=== PATIENT | female | born 1960 | race Hispanic/Latino ===

== ENCOUNTER 2016-05-02 23:50 | Emergency (ER) | payer MEDICAID ==
[2016-05-03] MEDS ORDERED: NACL 0.9% 1000 ML 1,000 ML IV ONE (00:38)
[2016-05-03] MEDS ORDERED: VALIUM IV ONE (00:39)
[2016-05-03 00:45] LABS: Basophils % (Auto) 0.6 % (0.0-1.8); Hematocrit 41.3 % (30.3-42.9); Hemoglobin 14.2 gm/dl (10.1-14.3); Mean Corpuscular HGB Conc 34 % (30-34); Mean Corpuscular Hemoglobin 30 pg (28-32); Mean Corpuscular Volume 88 fl (79-97); Platelet Count 144 K/mm3 (140-440); Red Cell Distribution Width 14.9 % (13.2-15.2); White Blood Count 9.6 K/mm3 (4.5-11.0)
[2016-05-03 00:54] LABS: Alanine Aminotransferase 42 units/L (7-56); Albumin 4.3 g/dL (3.9-5); Albumin/Globulin Ratio 1.3 %; Alkaline Phosphatase 77 units/L (35-129); Bilirubin,Total 0.4 mg/dL (0.1-1.2); Blood Urea Nitrogen 13 mg/dL (7-17); Calcium 9.9 mg/dL (8.4-10.2); Carbon Dioxide 24 mmol/L (22-30); Chloride 99.1 mmol/L (98-107); Creatine Kinase 118 units/L (30-135); Glucose 120 mg/dL (65-100); Potassium 3.5 mmol/L (3.6-5.0); Sodium 140 mmol/L (137-145); Total Protein 7.6 g/dL (6.3-8.2)
[2016-05-03 00:56] LABS: INR 1.04 (0.87-1.13); Partial Thromboplastin Time 24.2 Sec. (24.2-36.6)
[2016-05-03 00:58] LABS: Anion Gap 20 mmol/L
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
[2016-05-03 02:07] LABS: Creatine Kinase MB 6.1 ng/mL (0.0-4.0)
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
[2016-05-03 06:00] VITALS: BP 126/78
--- NOTE | 2016-05-03 08:05 | XRay Report ---
RIGHT KNEE, 2 views: History: Right knee pain. The bony architecture is intact without evidence of fracture or dislocation. No significant soft tissue abnormality is seen. Enthesophyte on the superior patella is noted. IMPRESSION: Unremarkable right knee.
--- NOTE | 2016-05-03 08:07 | XRay Report ---
AP PELVIS: History: Pain. AP view of the pelvis shows normal pelvic contour and soft tissues. The hips are symmetric and within normal limits as are the sacroiliac joints. Minimal osteoarthritic changes are noted at the SI joints and right hip. IMPRESSION: Unremarkable AP pelvis. Minor degenerative changes.
--- NOTE | 2016-05-03 09:28 | XRay Report ---
Right shoulder single view: Compared to 01/27/16. History: Shoulder pain. Findings: There is noted widening of the a.c. joint. Articular margins appear irregular. The glenohumeral joint appears normal. No soft tissue calcification. Impression: Widening of the a.c. joint compared to previous study with irregular articular margins. Further evaluation with MRI scan may be recommended if clinically indicated
--- NOTE | 2016-05-03 09:51 | XRay Report ---
AP CHEST X-RAY: FINDINGS: The heart and lungs are normal. There is no pleural fluid. There is partial resorption of the right distal clavicle. IMPRESSION: 1. No acute findings. 2. Resorption of distal right clavicle. Differential considerations include hyperparathyroidism, scleroderma, metastatic disease, and numerous other conditions.
== END 2016-05-03 06:15 | disposition home or self-care (01) ==
LOC: ED 23:50
DX: R51 Headache (principal); M25.511 Pain in right shoulder; I10 Essential (primary) hypertension; E11.9 Type 2 diabetes mellitus without complications; K21.9 Gastro-esophageal reflux disease without esophagitis; M19.90 Unspecified osteoarthritis, unspecified site; G43.909 Migraine, unspecified, not intractable, without status migrainosus; R56.9 Unspecified convulsions; J45.909 Unspecified asthma, uncomplicated; F17.200 Nicotine dependence, unspecified, uncomplicated; Z88.5 Allergy status to narcotic agent
CPT/HCPCS: 36415; 70450; 71010; 71275; 72170; 73020; 73560; 80053; 82550; 82553; 83880; 84484; 85025; 85379; 85610; 85730; 93005; 93010; 96361; 96374; 99285; J3360; J7030; Q9967

== ENCOUNTER 2016-05-03 13:07 | Emergency (ER) | payer MEDICAID ==
--- NOTE | 2016-05-03 14:27 | Emergency Department Report ---
Chief Complaint: Headache Stated Complaint: MIGRAIN Time Seen by Provider: 05/03/16 14:19 - HPI History of Present Illness: Patient here complaining of headache times one month. She reports blurred vision and dizziness. She reports nausea and vomiting. Patient was here earlier this morning and was seen and discharged she says she was having chest pain this morning and they gave her nitroglycerin and Valium she denies any chest pain at present. Denies any shortness of breath she is reporting that her head hurts at 10 out of 10. Patient says she has chronic migraine headache and she wants to be seen for her headache. Patient had multiple diagnostics tests done while she was here earlier to include multiple x-rays, CTA of the chest and CT of the head. She also had lab work done earlier this morning. Don 't see any need to repeat her lab work or CT scan. Patient says she has several seizures before she came to the ER this morning. She is on Keppra. - ROS Review of Systems: All systems are negative unless stated in HPI above. - Exam Vital Signs: Vital Signs 05/03/16 13:08 Temperature 98.2 F Pulse Rate 111 H Respiratory 16 Rate Blood Pressure 138/81 O2 Sat by Pulse 95 Oximetry Physical Exam: General: This is a 55-year-old female well-nourished well-developed in no acute distress. Head: Normocephalic atraumatic. No contusions or abrasions. mini-Neuro: GCS at 15. Negative pronator drift and negative Romberg. PT alert and oriented 3. Speech is clear and no facial drooping. Normal gait CV: Tachycardic at 111 MSE screening note: Focused history and physical exam performed. Due to findings the following was ordered: See [facility] ED Medical Decision Making - Medical Decision Making Medical decision making: Patient seen by provider in triage area. Appropriate protocol activated and patient to main ED to be seen by physician. ED Disposition for [facility] Condition: Stable
[2016-05-03 18:36] LABS: Urine Drugs of Abuse Note Disclamer
[2016-05-03 19:24] LABS: Bacteria,Urine 1+ /HPF (Negative); Bilirubin,Urine NEG (Negative); Blood,Urine NEG (Negative); Ketones,Urine NEG (Negative); Leukocyte Esterase,Urine SM (Negative); Mucus,Urine FEW /HPF; Nitrite,Urine NEG (Negative); Protein,Urine <15 mg/dL mg/dL (Negative)
--- NOTE | 2016-05-04 00:45 | Admit Criteria Form ---
Admission Criteria Documentation: HEADACHES Clinical Indications for Admission to Inpatient Care (Place 'X' for any and all applicable criteria): Admission is indicated for ANY ONE of the following(1)(2)(3)(4): [ X]I. Inpatient admission required rather than observational care (Also use Headaches: Observation Care as appropriate) because of ANY ONE of the following: [ ]a) Severe pain requiring acute inpatient management [ ]b) Altered mental status that is severe or persistent [ ]c) Vomiting or dehydration that is severe or persistent [ ]d) New-onset focal neurologic deficit that is severe or persistent [ ]e) Hypertension requiring inpatient treatment [ ]f) Severe (new) neurologic findings requiring inpatient care as indicated by ANY ONE of following(9)(10): [ ]1) Papilledema [ ]2) Cerebral edema [ ]3) Mass effect on CT scan [ ]4) Cerebral bleeding, ischemia, or vasospasm(16) [ ]5) Hydrocephalus(17) [ ]6) Uncontrolled seizures [ ]g) IV infusion of anticoagulation, platelet inhibitors vasoactive, or antiarrhythmic medication. [ ]h) Cerebral bleeding, hydrocephalus, or vasospasm monitoring (16) [ ]i) Increased intracranial pressure or cerebral edema monitoring (17) [X]j) Other condition, treatment or monitoring requiring inpatient admission [ ]II. Unruptured but threatening aneurysm or vascular malformation [ ]III. Venous sinus thrombosis [ ]IV. Increased intracranial pressure [ ]V. Cerebral spinal fluid leak with decreased intracranial pressure [ ]. Medication-overuse headache that has failed all outpatient management options [ ]VII. Vasculitis (eg, giant cell (temporal) arteritis, central nervous system vasculitis) requiring IV corticosteroids, IV antithrombotic therapy, or inpatient monitoring (eg, visual symptoms or findings, other ischemic manifestations)[A](10)(11) Extended stay beyond goal length of stay may be needed for (27): [ ]a) Intractable migraine [ ]b) Subarachnoid or intracranial hemorrhage [ ]c) Malignant hypertension [ ]d) Detoxification from drug withdrawal in medication-overuse headache (29) The original [facility] [employer] content created by [facility] [employer] has been revised. The portions of the content which have been revised are identified through the use of italic text or in bold, and [employer] has neither reviewed nor approved the modified material.All other unmodified content is copyright [facility]. Please see references footnoted in the original [facility] edition 2016
[2016-05-04] MEDS ORDERED: KEPPRA PO ONE (00:50)
[2016-05-04] MEDS ORDERED: TORADOL IM ONE (00:50)
--- NOTE | 2016-05-04 00:56 | Emergency Department Report ---
ED General Adult HPI - General Chief complaint: Headache Stated complaint: MIGRAIN Time Seen by Provider: 05/03/16 14:19 Source: patient, RN notes reviewed, old records reviewed Mode of arrival: Ambulatory Limitations: No Limitations - History of Present Illness Initial comments: This is a 55-year-old female. I saw the patient yesterday for headache, right- sided shoulder pain, atypical chest pain. Patient had an extensive workup yesterday, including essentially negative CAT scan of the head, CAT scan of the chest for pulmonary animals, and unremarkable laboratory work with exception of a urinalysis that suggested the presence of marijuana abuse. The patient was observed in the ER yesterday for a prolonged period of time, and then discharged. The patient presents today complaining of her chronic headache, chronic right-sided shoulder pain. Her symptoms today are the same as they are yesterday. She has no extremity weakness or numbness. She has no ataxia. She is not homicidal or suicidal. The patient states that today she is interested in speaking to case management about placement. Of note, when I arrived to the emergency room for my shift this evening, I noted the patient to be outside, smoking a cigarette, walking around without any difficulty. There is some documentation from her medical screening exam about multiple seizures. The patient has been observed in the ER last night under my direct care without any observed convulsion or seizure. Furthermore, the patient has been waiting room for quite some time prior to coming back, and no convulsive episodes were noted. At this time, the patient has been in the emergency department for approximately 8 hours, with no witnessed convulsive episodes. Her exam is similar to the wait was yesterday. She has persistent right-sided acromial clavicular shoulder tenderness. I see no objective indication to repeat her laboratory studies or radiology workup. She is instructed to discontinue marijuana consumption. She is instructed to not drive a car for the next 6 months. She is instructed to follow up with outpatient primary care, neurology. -: Gradual, week(s) Location: head, right, upper extremity Quality: aching Consistency: constant Improves with: rest Worsens with: movement Associated Symptoms: headaches - Related Data Home Medications Medication Instructions Recorded Confirmed Last Taken ALBUTEROL Inhaler [Proair] 2 puff IH QID PRN 11/21/15 01/03/16 01/04/16 Albuterol *Only Ed* [Proventil 2.5 mg IH Q4H PRN 11/21/15 01/03/16 01/04/16 0.5% NEBS] Fluticasone/Salmeterol [Advair 1 puff IH BID 11/21/15 01/03/16 01/04/16 Diskus 250-50 mcg] Ranitidine HCl [Zantac 150 MG TAB] 150 mg PO PRN PRN 11/21/15 01/03/16 01/04/16 metFORMIN [Glucophage] 500 mg PO BID 11/21/15 01/03/16 01/04/16 levETIRAcetam [Keppra TAB] 500 mg PO QDAY 01/05/16 01/05/16 01/05/16 06:45 Previous Rx's Medication Instructions Recorded Last Taken Type Ibuprofen [Motrin 800 MG tab] 800 mg PO Q8HR PRN #20 tablet 01/27/16 Unknown Rx Allergies Allergy/AdvReac Type Severity Reaction Status Date / Time acetaminophen [From Vicodin] Allergy Rash Verified 01/05/16 07:46 hydrocodone bitartrate Allergy Rash Verified 01/05/16 07:46 [From Vicodin] ED Review of Systems ROS: Stated complaint: MIGRAIN Other details as noted in HPI ED Past Medical Hx - Past Medical History Hx Hypertension: Yes Hx Diabetes: Yes (diagnosed within last 6-7 mos) Hx GERD: Yes Hx Arthritis: Yes Hx Headaches / Migraines: Yes (occas migraine) Hx Seizures: Yes (last 8 days ago - took meds this AM) Hx Asthma: Yes - Surgical History Hx Cholecystectomy: Yes Additional Surgical History: Hysterectomy - Social History Smoking Status: Never Smoker Substance Use Type: None - Medications Home Medications: Home Medications Medication Instructions Recorded Confirmed Last Taken Type ALBUTEROL Inhaler [Proair] 2 puff IH QID PRN 11/21/15 01/03/16 01/04/16 History Albuterol *Only Ed* [Proventil 2.5 mg IH Q4H PRN 11/21/15 01/03/16 01/04/16 History 0.5% NEBS] Fluticasone/Salmeterol [Advair 1 puff IH BID 11/21/15 01/03/16 01/04/16 History Diskus 250-50 mcg] Ranitidine HCl [Zantac 150 MG TAB] 150 mg PO PRN PRN 11/21/15 01/03/16 01/04/16 History metFORMIN [Glucophage] 500 mg PO BID 11/21/15 01/03/16 01/04/16 History levETIRAcetam [Keppra TAB] 500 mg PO QDAY 01/05/16 01/05/16 01/05/16 06:45 History Ibuprofen [Motrin 800 MG tab] 800 mg PO Q8HR PRN #20 tablet 01/27/16 Unknown Rx ED Physical Exam - General Limitations: No Limitations General appearance: alert, in no apparent distress - Head Head exam: Present: atraumatic, normocephalic - Eye Eye exam: Present: normal appearance, EOMI. Absent: nystagmus - ENT ENT exam: Present: normal exam, normal orophraynx, mucous membranes moist, normal external ear exam - Neck Neck exam: Present: normal inspection, full ROM. Absent: tenderness, meningismus - Respiratory Respiratory exam: Present: normal lung sounds bilaterally. Absent: respiratory distress, wheezes, rales, rhonchi, stridor - Cardiovascular Cardiovascular Exam: Present: regular rate, normal rhythm, normal heart sounds. Absent: bradycardia, tachycardia, irregular rhythm, systolic murmur, diastolic murmur, rubs, gallop - GI/Abdominal GI/Abdominal exam: Present: soft, normal bowel sounds. Absent: distended, tenderness, guarding, rebound, rigid, pulsatile mass - Extremities Exam Extremities exam: Present: normal inspection, full ROM, tenderness (the right acromioclavicular joint is tender.), normal capillary refill, other ( compartments are soft. The pelvis is stable.). Absent: pedal edema, joint swelling - Back Exam Back exam: Present: normal inspection, full ROM. Absent: tenderness, CVA tenderness (R), CVA tenderness (L), muscle spasm, paraspinal tenderness, vertebral tenderness - Neurological Exam Neurological exam: Present: alert, oriented X3, normal gait, other (Extraocular movements intact. Tongue midline. No facial droop. Facial sensation intact to light touch in the V1, V2, V3 distribution bilaterally. 5 and 5 strength in 4 extremities.. Sensation is intact to light touch in 4 extremities.). Absent : motor sensory deficit - Psychiatric Psychiatric exam: Present: agitated - Skin Skin exam: Present: warm, dry, intact, normal color. Absent: rash ED Course Vital Signs 05/03/16 13:08 Temperature 98.2 F Pulse Rate 111 H Respiratory 16 Rate Blood Pressure 138/81 O2 Sat by Pulse 95 Oximetry - Reevaluation(s) Reevaluation #1: 05/04/16 01:00 Differential diagnosis: Seizure, pseudoseizure, malingering, cannabis abuse, persistent right-sided acromioclavicular strain ED Medical Decision Making - Lab Data Vital Signs 05/03/16 13:08 Temperature 98.2 F Pulse Rate 111 H Respiratory 16 Rate Blood Pressure 138/81 O2 Sat by Pulse 95 Oximetry Critical care attestation.: If time is entered above; I have spent that time in minutes in the direct care of this critically ill patient, excluding procedure time. ED Disposition Clinical Impression: Headache, Right shoulder pain Disposition: DISCHARGED TO HOME OR SELFCARE Is pt being admited?: No Does the pt Need Aspirin: No Condition: Stable Instructions: Acromioclavicular Separation (ED) Additional Instructions: Rest and avoid heavy lifting. Avoid strenuous physical activity. Follow-up with primary care doctor and neurology specialist within the next week to [address] Sanders is a local neurologist. Dr. Go is a local primary care doctor. Do not drive a car or operate motor vehicles for the next 6 months. Cannot consume alcohol, and discontinue consumption of illegal drugs, including marijuana. The urine toxicology screen yesterday demonstrated the presence of marijuana. If you are consuming marijuana or illegal drugs, they are bad for your health. X-rays yesterday demonstrated separation of the right side of the acromioclavicular joint, and nonspecific bony abnormalities which might be concerning for cancer/tumor/malignancy. Therefore, it is very important to closely follow up with outpatient primary care doctor or orthopedist for further evaluation and management. Please return to the ER right away with chest pain or shortness of breath, nausea or vomiting, recurrent seizures, inability to tolerate liquid feeds. Referrals: PRIMARY CARE, [Primary Care Provider] - 3-5 Days MITRA GO MD [Staff Physician] - 3-5 Days PETAR RUTHERFORD MD [Staff Physician] - 3-5 Days CANDI SANDERS MD [Staff Physician] - 3-5 Days
[2016-05-04 01:12] VITALS: BP 124/57
== END 2016-05-04 01:19 | disposition home or self-care (01) ==
LOC: ED 13:07
DX: G43.909 Migraine, unspecified, not intractable, without status migrainosus (principal); M25.511 Pain in right shoulder; G89.29 Other chronic pain; I10 Essential (primary) hypertension; K21.9 Gastro-esophageal reflux disease without esophagitis; E11.9 Type 2 diabetes mellitus without complications; M19.90 Unspecified osteoarthritis, unspecified site; R56.9 Unspecified convulsions; J45.909 Unspecified asthma, uncomplicated; Z88.5 Allergy status to narcotic agent
CPT/HCPCS: 36415; 80177; 80307; 81001; 96372; 99283; G0480; J1885; 80320

== ENCOUNTER 2016-05-08 00:22 | Emergency (ER) | payer MEDICAID ==
--- NOTE | 2016-05-08 04:10 | Emergency Department Report ---
HPI - General Chief Complaint: Allergic Reaction Time Seen by Provider: 05/08/16 04:03 - HPI HPI: Patient here reports that she's having allergic reaction from taking Lortab and Fioricet. She reports 30 minutes after taking these medications for her migraines she broke out into a rash. Patient was experiencing shortness of breath but she is okay now. Patient has a history of asthma without any complaints. Denies any difficulty swallowing. Denies any drooling or sore throat. Denies any coughing or wheezing. She is also complaining of itching all over. The patient was waiting to be seen she was in a wheelchair and fell out of her reach wheelchair and has bruise to her nasal septum. She is also complaining of right shoulder pain at 10 out of 10. ED Past Medical Hx - Past Medical History Previous Medical History?: Yes Hx Hypertension: Yes Hx Diabetes: Yes (diagnosed within last 6-7 mos) Hx GERD: Yes Hx Arthritis: Yes Hx Headaches / Migraines: Yes (occas migraine) Hx Seizures: Yes (last 8 days ago - took meds this AM) Hx Asthma: Yes - Surgical History Past Surgical History?: Yes Hx Cholecystectomy: Yes Additional Surgical History: Hysterectomy - Family History Family history: asthma, hypertension - Social History Smoking Status: Current Every Day Smoker Substance Use Type: None - Medications Home Medications: Home Medications Medication Instructions Recorded Confirmed Last Taken Type ALBUTEROL Inhaler [Proair] 2 puff IH QID PRN 11/21/15 01/03/16 01/04/16 History Albuterol *Only Ed* [Proventil 2.5 mg IH Q4H PRN 11/21/15 01/03/16 01/04/16 History 0.5% NEBS] Fluticasone/Salmeterol [Advair 1 puff IH BID 11/21/15 01/03/16 01/04/16 History Diskus 250-50 mcg] Ranitidine HCl [Zantac 150 MG TAB] 150 mg PO PRN PRN 11/21/15 01/03/16 01/04/16 History metFORMIN [Glucophage] 500 mg PO BID 11/21/15 01/03/16 01/04/16 History levETIRAcetam [Keppra TAB] 500 mg PO QDAY 01/05/16 01/05/16 01/05/16 06:45 History Ibuprofen [Motrin 800 MG tab] 800 mg PO Q8HR PRN #20 tablet 01/27/16 Unknown Rx Famotidine [Pepcid] 40 mg PO QDAY #5 tablet 05/08/16 Unknown Rx diphenhydrAMINE [Benadryl CAP] 50 mg PO Q8HR PRN #12 capsule 05/08/16 Unknown Rx predniSONE [Deltasone] 20 mg PO QDAY #5 tab 05/08/16 Unknown Rx traMADol [Ultram] 50 mg PO Q6HR PRN #20 tablet 05/08/16 Unknown Rx ED Review of Systems ROS: Stated complaint: ITCHING OVER BODY Other details as noted in HPI Comment: All other systems reviewed and negative Constitutional: denies: chills, fever Eyes: denies: eye pain, eye discharge, vision change ENT: denies: ear pain, throat pain, congestion Respiratory: denies: cough, orthopnea, shortness of breath, SOB with exertion, SOB at rest, stridor, wheezing Cardiovascular: denies: chest pain, palpitations, edema, syncope Gastrointestinal: denies: abdominal pain, nausea, vomiting Musculoskeletal: arthralgia. denies: back pain Skin: rash, pruritus Neurological: denies: headache, weakness, numbness, paresthesias, confusion, abnormal gait, vertigo Physical Exam - Physical Exam Vital Signs: Vital Signs 05/08/16 00:42 Temperature 98.7 F Pulse Rate 69 Respiratory 20 Rate Blood Pressure 137/82 O2 Sat by Pulse 96 Oximetry General: This is a 55-year-old female well-nourished well-developed in no acute distress. Physical Exam: Head: Normocephalic atraumatic. No abrasion or contusion. Mouth: Moist, no pharyngeal exudate or erythema. Uvula is midline and oral airway is patent. No gingival enlargement or dental tenderness. No facial swelling. No peritonsillar abscesses. MSK: Full range of motion to all extremity,NO AC or glenohumeral joint tenderness. +5/5 strength in all extremities. Neck: Supple, no C-spine tenderness, no tracheal deviation. Nontender to palpate. no adenopathy Ears: Bilateral TMs pearly han.bilateral EAC without any redness swelling or drainage Eyes: Bilateral pupils equal and reactive to light, bilateral EOM intact. Bilateral sclera and conjunctiva without injection. Normal accommodation Nose: Mucosa moist, normal mucosa .maxillary and frontal sinus non-tender to palpate. Nasal septum nontender to palpate without any deformity Lungs:[place] auscultate bilaterally no rhonchi wheezes or rales. Normal work of breathing extremity; No CCE. +2 pulses. No neurovascular compromise. Cardiovascular: S1-S2, regular rate rhythm. No murmurs. Skin: erythema area to the posterior thorax . Flat and nontender to palpate. Nasal area with small area of bruising. Psych: Normal mood and behavior noted erythema area ED Course Vital Signs 05/08/16 00:42 Temperature 98.7 F Pulse Rate 69 Respiratory 20 Rate Blood Pressure 137/82 O2 Sat by Pulse 96 Oximetry - Reevaluation(s) Reevaluation #1: 05/08/16 05:11 Patient received Pepcid 40 mg in emergency room and she refused Decadron. I discussed with her that I will go ahead and prescribe Benadryl, Pepcid and prednisone for her to go home with. She said the rash is better and she just needs something for itching. ED Medical Decision Making - Radiology Data Radiology results: report reviewed CT scan of the facial bones reveal normal exam - Medical Decision Making ED course: I discussed with patient that she is contact dermatitis and will be treated with steroids and Benadryl. I feel that the CT scan of her nasal bone after falling revealed no fracture or dislocation. Patient remained stable throughout ED course. She refuses her Decadron. Patient discharged home in stable condition with prescription for prednisone, Benadryl, Ultram and Pepcid. Critical care attestation.: If time is entered above; I have spent that time in minutes in the direct care of this critically ill patient, excluding procedure time. ED Disposition Clinical Impression: Arthralgia of left shoulder region Contact dermatitis Qualifiers: Contact dermatitis type: unspecified Contact dermatitis trigger: other trigger Qualified Code(s): L25.8 - Unspecified contact dermatitis due to other agents Fall from wheelchair Qualifiers: Encounter type: initial encounter Qualified Code(s): W05.0XXA - Fall from non- moving wheelchair, initial encounter Traumatic ecchymosis of nose Qualifiers: Encounter type: initial encounter Qualified Code(s): S00.33XA - Contusion of nose, initial encounter Disposition: DISCHARGED TO HOME OR SELFCARE Is pt being admited?: No Does the pt Need Aspirin: No Condition: Stable Instructions: Arthralgia (ED), Contact Dermatitis (ED), Itchy Skin (ED) Additional Instructions: Please stop taking Lortab and Fioricet Prescriptions: diphenhydrAMINE [Benadryl CAP] 50 mg PO Q8HR PRN #12 capsule PRN Reason: Itching predniSONE [Deltasone] 20 mg PO QDAY #5 tab Famotidine [Pepcid] 40 mg PO QDAY #5 tablet traMADol [Ultram] 50 mg PO Q6HR PRN #20 tablet PRN Reason: Pain Referrals: PRIMARY CARE,MD [Primary Care Provider] - 2-3 Days Forms: Work/School Release Form(ED)
[2016-05-08] MEDS ORDERED: PEPCID PO ONE (04:12)
[2016-05-08] MEDS ORDERED: DECADRON IM STA (04:12)
--- NOTE | 2016-05-08 04:19 | Cat Scan Report ---
FINAL REPORT PROCEDURE: CT FACIAL BONES WO CON TECHNIQUE: Computerized tomography of the facial bones and soft tissues with axial and coronal sections performed from the cranial aspect of the frontal sinuses to the caudal portion of the mandible without contrast material. HISTORY: fall COMPARISON: No prior studies are available for comparison. FINDINGS: Bones: No significant abnormality. Paranasal sinuses: Clear. Soft tissues: No significant abnormality. Other: None. IMPRESSION: Normal Examination
[2016-05-08 04:51] VITALS: BP 117/66
== END 2016-05-08 06:08 | disposition home or self-care (01) ==
LOC: ED 00:22
DX: S00.33XA Contusion of nose, initial encounter (principal); L25.8 Unspecified contact dermatitis due to other agents; M25.512 Pain in left shoulder; I10 Essential (primary) hypertension; E11.9 Type 2 diabetes mellitus without complications; K21.9 Gastro-esophageal reflux disease without esophagitis; M19.90 Unspecified osteoarthritis, unspecified site; G43.909 Migraine, unspecified, not intractable, without status migrainosus; R56.9 Unspecified convulsions; J45.909 Unspecified asthma, uncomplicated; F17.200 Nicotine dependence, unspecified, uncomplicated; W05.0XXA Fall from non-moving wheelchair, initial encounter; Y93.9 Activity, unspecified; Y92.89 Other specified places as the place of occurrence of the external cause; Y99.9 Unspecified external cause status
CPT/HCPCS: 70486; J1100